=== PATIENT | female | born 1990 | race Caucasian/White ===

== ENCOUNTER 2017-09-24 12:33 | Emergency (ER) | payer SELFPAY ==
[~2017-09-24] VITALS: Ht 162.6 cm; Wt 53.3 kg
[2017-09-24 13:58] LABS: HEMATOCRIT 45.5 % (36.0-46.0); MCHC 31.9 G/DL (30.0-36.0); MCV 87.8 FL (83-99); MEAN PLAT.VOLUME 10.3 uM^3 (9.5-12.4); PLATELET COUNT 246 K/uL (156-360); RBC DIS.WIDTH-CV 13.1 % (11.8-14.6); RBC DIS.WIDTH-SD 42.5 % (39-53); RED BLOOD COUNT 5.18 M/uL (3.80-5.20); WHITE BLOOD COUNT 6.8 K/uL (4.1-10.2)
[2017-09-24 14:13] LABS: CHLORIDE 109 mEq/L (99-109); SODIUM 143 mEq/L (136-147)
[2017-09-24 14:16] LABS: GLUCOSE 101 mg/dL (70-99)
[2017-09-24 14:17] LABS: ANION GAP 9 MEQ/L (2-14)
[2017-09-24 14:18] LABS: TOTAL BILIRUBIN 1.9 mg/dL (0.0-1.0)
[2017-09-24 14:19] LABS: ALKALINE PHOSPHATASE 57 IU/L (3-129)
[2017-09-24 14:20] LABS: GFR ESTIMATE (CALCULATED) > 59 mL/min/; UREA NITROGEN (BUN) 5 mg/dL (9-23)
[2017-09-24 14:31] LABS: QUANTITATIVE HCG < 4.0 MIU/ML
[2017-09-24 15:23] LABS: ADD MIUA? YES; BILIRUBIN NEGATIVE; BLOOD NEGATIVE; COLOR YELLOW ((YELLOW)); GLUCOSE (STRIP) NEGATIVE; KETONES NEGATIVE; LEUKOCYTES MODERATE; NITRITE NEGATIVE; PROTEIN (STRIP) NEGATIVE; SPECIFIC GRAVITY 1.011 (1.000-1.030); UROBILINOGEN 0.2 MG/DL (0.2-1.0)
[2017-09-24 15:52] LABS: BACTERIA 1+ /HPF; EPITHELIAL CELLS RARE /HPF; MUCUS TRACE /LPF; UCUL ADDED? YES; WHITE BLOOD CELLS TNTC /HPF (0-5)
[2017-09-24] MEDS ORDERED: NAPROSYN500 MG PO (20:03)
[2017-09-24] MEDS ORDERED: CIPRO500 MG PO (20:03)
[2017-09-24] MEDS ORDERED: MONISTAT 744 GM VG (20:03)
[2017-09-24 20:33] VITALS: BP 128/65
[2017-09-27 13:00] LABS: CHLAMYDIA TRACHOMATIS NEGATIVE; NEISSERIA GONORRHOEAE NEGATIVE
== END 2017-09-24 20:34 | disposition home or self-care (01) ==
LOC: EME 12:33
PROVIDERS: Emergency Medicine
DX: N72 Inflammatory disease of cervix uteri (principal); N39.0 Urinary tract infection, site not specified; Z11.3 Encounter for screening for infections with a predominantly sexual mode of transmission; F17.200 Nicotine dependence, unspecified, uncomplicated
CPT/HCPCS: 76856; 80053; 81003; 84702; 85027; 87077; 87086; 87186; 87210; 87491; 87591; 99281; 99284; J0696